=== PATIENT | female | born 1955 | race Caucasian/White ===

== ENCOUNTER 2016-11-04 08:49 | Outpatient (CLI) | payer BC | END 2016-11-04 08:50 | disposition home or self-care (01) | DX: M79.642 Pain in left hand (principal); M79.641 Pain in right hand ==

== ENCOUNTER 2016-12-19 09:10 | Outpatient (CLI) | payer BC | END 2016-12-19 09:11 | disposition home or self-care (01) | DX: B19.20 Unspecified viral hepatitis C without hepatic coma (principal) ==

== ENCOUNTER 2017-04-13 13:04 | Outpatient (CLI) | payer BC ==
--- NOTE | 2017-04-14 08:30 | XRAY Report ---
LEFT HIP AND PELVIS: 04/13/2017 CLINICAL INDICATION: Chronic pain. FINDINGS: Frontal view of the hips and pelvis and frogleg lateral view of the left hip demonstrate m ild osteoarthritis, with chondrocalcinosis. There is no evidence of acute fracture or dislocation. No radiopaque foreign body is seen in the soft tissues. IMPRESSION: MILD OSTEOARTHRITIS, WITH CHONDROCALCINOSIS. JOB #: [id number] EXT JOB #:[id number]
== END 2017-04-13 13:05 | disposition home or self-care (01) ==
LOC: DI 13:04
PROVIDERS: ATTEND Internal Medicine Rheumatology
DX: M25.552 Pain in left hip (principal); G89.29 Other chronic pain; M16.12 Unilateral primary osteoarthritis, left hip; M11.252 Other chondrocalcinosis, left hip